=== PATIENT | male | born 1965 | race Caucasian/White ===

== ENCOUNTER 2022-09-24 10:32 | Emergency (ER) | payer SELFPAY ==
[2022-09-24] MEDS ORDERED: LIDOCAINE 1% 20 ML MDV ONE (10:51)
[2022-09-24] MEDS ORDERED: HYDROCODONE/APAP 7.5/325 MG TAB ONE (10:51)
[2022-09-24] MEDS ORDERED: TDAP (DIPHTH,PERTUSS(ACELL),TET VAC) 0.5 ML VIAL IMVAC ONE (10:52)
--- NOTE | 2022-09-24 11:41 | RAD REPORT ---
EXAM DESCRIPTION: RAD - Forearm Right - 09/24/2022 11:36 am CLINICAL HISTORY: Right arm pain FINDINGS: No fracture is seen. Soft tissue laceration mid forearm. A radiopaque foreign body is not seen
--- NOTE | 2022-09-24 12:07 | EDPHYS ---
Physician Documentation [facility] Name: Yann Delacruz Age: 56 yrs Sex: Male : 1965 Arrival Date: 09/24/2022 Time: 10:32 Bed 6 Private MD: ED Physician Isabela Patel HPI: 09/24 10:41 This 56 yrs old Male presents to ER via Unassigned with complaints of Laceration To Arm.snw 10:41 The patient has a laceration related to: pt was working on a dock, slipped off and snw nails from the dock caught his right arm as pt fell into the water. Historical: - Allergies: 10:38 No Known Allergies; aa5 - PMHx: 10:38 None; aa5 - Immunization history:: Last tetanus immunization: unknown. - Social history:: Smoking status: Patient denies any tobacco usage or history of. ROS: 10:40 Constitutional: Negative for fever, chills, and weight loss, Eyes: Negative for injury, snw pain, redness, and discharge, ENT: Negative for injury, pain, and discharge, Neck: Negative for injury, pain, and swelling, Cardiovascular: Negative for chest pain, palpitations, and edema, Respiratory: Negative for shortness of breath, cough, wheezing, and pleuritic chest pain, Abdomen/GI: Negative for abdominal pain, nausea, vomiting, diarrhea, and constipation, Back: Negative for injury and pain, : Negative for injury, bleeding, discharge, and swelling, MS/Extremity: Negative for injury and deformity, Neuro: Negative for headache, weakness, numbness, tingling, and seizure, Psych: Negative for depression, anxiety, suicide ideation, homicidal ideation, and hallucinations. 10:40 Skin: Positive for laceration(s), of the palmar aspect of right forearm. Exam: 10:40 Constitutional: This is a well developed, well nourished patient who is awake, alert, snw and in no acute distress. Head/Face: Normocephalic, atraumatic. Eyes: Pupils equal round and reactive to light, extra-ocular motions intact. Lids and lashes normal. Conjunctiva and sclera are non-icteric and not injected. Cornea within normal limits. Periorbital areas with no swelling, redness, or edema. ENT: Nares patent. No nasal discharge, no septal abnormalities noted. Tympanic membranes are normal and external auditory canals are clear. Oropharynx with no redness, swelling, or masses, exudates, or evidence of obstruction, uvula midline. Mucous membranes moist. Neck: Trachea midline, no thyromegaly or masses palpated, and no cervical lymphadenopathy. Supple, full range of motion without nuchal rigidity, or vertebral point tenderness. No Meningismus. Chest/axilla: Normal chest wall appearance and motion. Nontender with no deformity. No lesions are appreciated. Cardiovascular: Regular rate and rhythm with a normal S1 and S2. No gallops, murmurs, or rubs. Normal PMI, no JVD. No pulse deficits. Respiratory: Lungs have equal breath sounds bilaterally, clear to auscultation and percussion. No rales, rhonchi or wheezes noted. No increased work of breathing, no retractions or nasal flaring. Abdomen/GI: Soft, non-tender, with normal bowel sounds. No distension or tympany. No guarding or rebound. No evidence of tenderness throughout. Back: No spinal tenderness. No costovertebral tenderness. Full range of motion. MS/ Extremity: Pulses equal, no cyanosis. Neurovascular intact. Full, normal range of motion. Neuro: Awake and alert, GCS 15, oriented to person, place, time, and situation. Cranial nerves II-XII grossly intact. Motor strength 5/5 in all extremities. Sensory grossly intact. Cerebellar exam normal. Normal gait. Psych: Awake, alert, with orientation to person, place and time. Behavior, mood, and affect are within normal limits. 10:40 Skin: injury, laceration(s), the wound is approximately 4 cm(s), with a depth of 2 cm(s), of the palmar aspect of right forearm. Vital Signs: 10:38 BP 109 / 81; Pulse 58; Resp 20 S; Temp 98(O); Pulse Ox 100% on R/A; Weight 78.02 kg aa5 (R); Height 6 ft. 0 in. (R); 10:45 BP 111 / 78; Pulse 57; Resp 18; Pulse Ox 99% ; ko1 12:18 BP 127 / 85; Pulse 62; Resp 16; Pulse Ox 99% ; ko1 10:38 Body Mass Index 23.33 (78.02 kg, 182.88 cm) aa5 Laceration: 11:14 Wound Repair of 3cm ( 1.2in ) muscle penetrating laceration to palmar aspect of right snw forearm. Gross contamination.. Distal neuro/vascular/tendon intact. Anesthesia: Local anesthetic administered with 10 mls of 1% lidocaine. Wound prep: Particulate matter removal of metal by me, Wound explored extensively, Copious irrigation. Skin closed with 10 3-0 Ethilon using 6 vertical mattress, 3 simple sutures, and 1 box suture. Dressed with Kerlix, non-adherent dressing. Patient tolerated well. MDM: 10:42 Patient medically screened. snw 11:20 Differential diagnosis: superficial laceration, vascular injury. Data reviewed: vital snw signs, nurses notes. I considered the following discharge prescriptions or medication management in the emergency department Medications were administered in the Emergency Department. See MAR. Counseling: I had a detailed discussion with the patient and/or guardian regarding: the historical points, exam findings, and any diagnostic results supporting the discharge/admit diagnosis, radiology results, the need for outpatient follow up, to return to the emergency department if symptoms worsen or persist or if there are any questions or concerns that arise at home. Special discussion: Based on the history and exam findings, there is no indication for further emergent testing or inpatient evaluation. I discussed with the patient/guardian the need to see the primary care provider for further evaluation of the symptoms. 09/24 11:09 Order name: Forearm Right XRAY; Complete Time: 12:03 bd 09/24 10:38 Order name: Wound Care; Complete Time: 12:05 snw 09/24 10:38 Order name: Dressing - Wound; Complete Time: 12:17 snw 09/24 10:38 Order name: Gloves, Sterile; Complete Time: 10:48 snw 09/24 10:38 Order name: Setup Suture Tray; Complete Time: 10:48 snw Administered Medications: 10:48 Drug: Boostrix Tdap IM 0.5 ml Route: IM; Site: left deltoid; ko1 12:18 Follow up: Response: No adverse reaction ko1 10:48 Drug: Hydrocodone-Acetaminophen PO (7.5 mg-325 mg) 1 tabs Route: PO; ko1 12:19 Follow up: Response: No adverse reaction; Pain is decreased ko1 10:57 Drug: Hibiclens Topical Liquid 4 % 1 application {Note: given to provider.} Route: db Topical; Site: affected area; 12:18 Follow up: Response: No adverse reaction ko1 10:57 Drug: Lidocaine Infiltration (1 %) 1 vials {Note: given provider.} Volume: 20 ml; db Route: Infiltration; 12:18 Follow up: Response: No adverse reaction ko1 12:15 Drug: Amoxicillin-Clavulanate PO 875 mg Route: PO; ko1 12:23 Follow up: Response: No adverse reaction ko1 Disposition Summary: 09/24/22 12:06 Discharge Ordered Location: Home snw Condition: Stable snw Diagnosis - Laceration without foreign body of right forearm snw Followup: snw - With: Emergency Department - When: 10 - 14 days - Reason: Staple/Suture removal Followup: snw - With: Private Physician - When: 2 - 3 days - Reason: Recheck today's complaints, Continuance of care, Re-evaluation by your physician Discharge Instructions: - Discharge Summary Sheet snw - Laceration Care, Adult snw - Sutured Wound Care snw - Wound Infection snw Forms: - Medication Reconciliation Form snw - Thank You Letter snw - Antibiotic Education snw - Prescription Opioid Use snw - Patient Portal Instructions snw Prescriptions: - Hibiclens 4 % Topical liquid - apply 1 application by TOPICAL route 2 times per day; 120 milliliter; Refills: snw 0, Product Selection Permitted - Augmentin 875-125 mg Oral Tablet - take 1 tablet by ORAL route every 12 hours for 10 days; 20 tablet; Refills: 0, snw Product Selection Permitted - Tramadol 50 mg Oral Tablet - take 1 tablet by ORAL route every 8 hours as needed; 12 tablet; Refills: 0, snw Product Selection Permitted Signatures: Dispatcher [employer] EDAmara Dodge FNP-C ASSOCIATE FINANCIAL ANALYST-Csnw Palmira Merino, RN RN aa5 Viki Carter RN RN ko1 Kiesha Anders RN RN db Corrections: (The following items were deleted from the chart) 12:05 11:14 Wound Repair of 3cm ( 1.2in ) muscle penetrating laceration to palmar aspect of snw right forearm. Gross contamination.. Distal neuro/vascular/tendon intact. Anesthesia: Local anesthetic administered with 10 mls of 1% lidocaine. Wound prep: Particulate matter removal of metal by me, Wound explored extensively, Copious irrigation. Skin closed with 6 3-0 Ethilon using simple sutures and sterile technique. Dressed with Kerlix, non-adherent dressing. Patient tolerated well. snw
--- NOTE | 2022-09-24 12:07 | ER ---
Nurse's Notes [facility] Name: Yann Delacruz Age: 56 yrs Sex: Male : 1965 Arrival Date: 09/24/2022 Time: 10:32 Bed 6 Private MD: Diagnosis: Laceration without foreign body of right forearm Presentation: 09/24 10:38 Chief complaint: Patient states: "I was working on a deck, slipped, and fell onto the aa5 water". Pt also states "I cut my arm on a suzi nail". Pt denies head injury. 10:38 Acuity: FRANCIE 3 aa5 10:38 Method Of Arrival: Ambulatory aa5 10:43 Coronavirus screen: At this time, the client does not indicate any symptoms associated aa5 with coronavirus-19. Ebola Screen: Patient denies travel to an Ebola-affected area in the 21 days before illness onset. Complicating Factors: There are no complicating factors for this patient. Initial Sepsis Screen: Does the patient meet any 2 criteria? No. Patient's initial sepsis screen is negative. Does the patient have a suspected source of infection? No. Patient's initial sepsis screen is negative. Risk Assessment: Do you want to hurt yourself or someone else? Patient reports no desire to harm self or others. Onset of symptoms was September 24, 2022. Historical: - Allergies: 10:38 No Known Allergies; aa5 - PMHx: 10:38 None; aa5 - Immunization history:: Last tetanus immunization: unknown. - Social history:: Smoking status: Patient denies any tobacco usage or history of. Screenin:45 [facility] ED Fall Risk Assessment (Adult) History of falling in the last 3 months, ko1 including since admission No falls in past 3 months (0 pts) Confusion or Disorientation No (0 pts) Intoxicated or Sedated No (0 pts) Impaired Gait No (0 pts) Mobility Assist Device Used No (0 pt) Altered Elimination No (0 pt) Score/Fall Risk Level 0 - 2 = Low Risk Oriented to surroundings, Maintained a safe environment, Educated pt \\T\\ family on fall prevention, incl call for assistance when getting out of bed, Assessed \\T\\ reinforced patient's understanding of fall precautions, Provided non-skid footwear, Hourly rounding (assess needs \\T\\ fall precautionary measures) done, Used ambulatory aids as needed (educated on \\T\\ assisted with), Used gait belt as appropriate. Abuse screen: Denies threats or abuse. Denies injuries from another. Nutritional screening: No deficits noted. Tuberculosis screening: No symptoms or risk factors identified. Assessment: 10:45 General: Appears in no apparent distress. Behavior is calm, cooperative, appropriate ko1 for age. Pain: Complains of pain in right arm and palmar aspect of right forearm. Neuro: No deficits noted. Cardiovascular: No deficits noted. Respiratory: No deficits noted. GI: No deficits noted. : No deficits noted. EENT: No deficits noted. Derm: No deficits noted. Musculoskeletal: Reports pain in right arm and palmar aspect of right forearm. Injury Description: Laceration is contaminated. Vital Signs: 10:38 BP 109 / 81; Pulse 58; Resp 20 S; Temp 98(O); Pulse Ox 100% on R/A; Weight 78.02 kg aa5 (R); Height 6 ft. 0 in. (R); 10:45 BP 111 / 78; Pulse 57; Resp 18; Pulse Ox 99% ; ko1 12:18 BP 127 / 85; Pulse 62; Resp 16; Pulse Ox 99% ; ko1 10:38 Body Mass Index 23.33 (78.02 kg, 182.88 cm) aa5 ED Course: 10:34 Patient arrived in ED. mg5 10:38 Arm band placed on Patient placed in an exam room, on a stretcher. ll1 10:39 Viki Carter, RN is Primary Nurse. ko1 10:39 Isabela Patel MD is Attending Physician. sp3 10:39 Amara Boss FNP-C is PHCP. snw 10:44 Triage completed. aa5 10:45 Patient has correct armband on for positive identification. Bed in low position. Call ko1 light in reach. Side rails up X 1. Provided Education on: lac repair. Pulse ox on. NIBP on. Door closed. Noise minimized. 10:45 Assist provider with fracture care of palmar aspect of right forearm Fracture is open. ko1 Set up for procedure. Performed by Amara GUILLORY. 11:30 Forearm Right XRAY In Process Unspecified. EDMS 12:07 Isabela Patel MD is Attending Physician. snw 12:18 Patient did not have IV access during this emergency room visit. ko1 Administered Medications: 10:48 Drug: Boostrix Tdap IM 0.5 ml Route: IM; Site: left deltoid; ko1 12:18 Follow up: Response: No adverse reaction ko1 10:48 Drug: Hydrocodone-Acetaminophen PO (7.5 mg-325 mg) 1 tabs Route: PO; ko1 12:19 Follow up: Response: No adverse reaction; Pain is decreased ko1 10:57 Drug: Hibiclens Topical Liquid 4 % 1 application {Note: given to provider.} Route: db Topical; Site: affected area; 12:18 Follow up: Response: No adverse reaction ko1 10:57 Drug: Lidocaine Infiltration (1 %) 1 vials {Note: given provider.} Volume: 20 ml; db Route: Infiltration; 12:18 Follow up: Response: No adverse reaction ko1 12:15 Drug: Amoxicillin-Clavulanate PO 875 mg Route: PO; ko1 12:23 Follow up: Response: No adverse reaction ko1 Medication: 10:45 Vaccine Information Statement (VIS) provided today. Questions and/or concerns ko1 addressed. VIS edition date: September 24, 2022. Outcome: 12:06 Discharge ordered by . snw 12:23 Patient left the ED. ko1 Signatures: Dispatcher [employer] EDMS Amara Boss FNP-C ELECTRON BEAM WELDER SETTER-CsnPalmira Healy RN RN aa5 Roman Neves RN RN ll1 Isabela Patel MD MD sp3 Viki Carter RN RN ko1 Kiesha Anders RN RN db [place], [place] mg5 Corrections: (The following items were deleted from the chart) 10:45 10:43 Chief complaint: Patient states: "I was working on a deck, slipped, and fell onto aa5 the water". Pt also states "I cut my arm on a suzi nail". Pt denies head injury. aa5 10:45 10:43 Acuity: FRANCIE 3 aa5 aa5 10:45 10:43 Method Of Arrival: Ambulatory aa5 aa5 10:45 10:43 BP 109 / 81; Pulse 58bpm; Resp 20bpm; Spontaneous; Pulse Ox 100% RA; Temp 98F aa5 Oral; 78.02 kg Reported; Height 6 ft. 0 in. Reported; BMI: 23.3; aa5
[2022-09-24] MEDS ORDERED: AMOX/K CLAV 875 MG TAB ONE (12:16)
[2022-09-24 12:28] VITALS: TEMP 98
[2022-09-24 12:30] VITALS: O2SAT 99
[2022-09-24 12:31] VITALS: BP 127/85
== END 2022-09-24 12:23 | disposition home or self-care (01) ==
LOC: ER 10:32 → EDBD 10:32 → ER 12:23
PROC: 0HQDXZZ Repair Right Lower Arm Skin, External Approach (ICD-10-PCS; principal; 2022-09-24)
DX: S51.811A Laceration without foreign body of right forearm, initial encounter (principal)
CPT/HCPCS: 96372; 99284; J2001